=== PATIENT | male | born 1995 | race African-American/Black ===

== ENCOUNTER → 2017-01-02 | Emergency (ER) | payer OTHER ==
[~2017-01-02] MED LIST: DIPH25CA58 PO; FAMO-63 PO; PRED50TA PO
[2017-01-02 21:50] VITALS: BP 152/73
[2017-01-02] MEDS: diphenhydrAMINE 50 MG/ML VIAL IM ONE (23:00)
[2017-01-02] MEDS: predniSONE 20 MG TABLET PO ONE (23:00)
[2017-01-02] MEDS: FAMOTIDINE 20 MG TABLET PO ONE (23:00)
--- NOTE | 2017-01-02 23:25 | PHYS DOC ---
Past History Past Medical History: No Pertinent History Past Surgical History: No Surgical History Alcohol Use: Occasionally Drug Use: None Adult General Chief Complaint Chief Complaint: ALLERGIC REACTION HPI HPI Patient is a gentleman who presents to the ER today secondary to a swelling sensation to his upper and lower lip. Patient reports he started developing hives to both elbows as well as his inguinal region after taking a shower. Patient reports she started taking a allergy medication at home. Patient put some cold balm on his groin region for itching. Patient reports he does feel slightly better but now his lower lip swelling as well. Patient has any difficulty swallowing or 5 sensation is uvular region. Patient has any wheezing or shortness of breath. Patient denies any difficulty breathing. Patient has any fevers shakes chills nausea vomiting diarrhea. I went through a slit different allergens in patient denies any. Patient reports she was around a dog however that was approximately 4 days ago. Patient denies any new perfumes, colognes, detergents, shampoos, soaps, clothes, friends. Review of systems: Constitutional: Denies fever or chills Eyes: Denies change in visual acuity, redness, or eye pain HENT: Denies nasal congestion or sore throat All other systems were reviewed and found to be within normal limits, except as documented in this note. Physical exam Constitutional: Well developed, well nourished, no acute distress, non-toxic appearance. HENT: Normocephalic, atraumatic, bilateral external ears normal, oropharynx moist, no oral exudates, nose normal. Eyes: PERRLA, EOMI, conjunctiva normal, no discharge. Neck: Normal range of motion, no tenderness, supple, no stridor. Cardiovascular:Heart rate regular rhythm, Lungs & Thorax: Bilateral breath sounds clear to auscultation Abdomen: Bowel sounds normal, soft, no tenderness, no masses, no pulsatile masses. Skin: Warm, dry, no erythema, no rash. Back: No tenderness, no CVA tenderness. Extremities: No tenderness, no cyanosis, no clubbing, ROM intact, no edema. Neurologic: Alert and oriented X 3, normal motor function, normal sensory function, no focal deficits noted. Psychologic: Affect normal, judgement normal, mood normal. Patient's ER physical exam is significant for mild swelling to his upper and lower lips. There is no erythema. His uvula is normal. No stridor. There is no edema. There is no stridor. Patient does have an erythematous hive-like rash to his bilateral elbows. Patient does have erythema to his bilateral inguinal region. Patient does not present with any signs or symptoms of be concerning for impending anaphylaxis or respiratory failure. Assessment and plan: 1. 21-year-old gentleman who presents here today secondary to allergic reaction. Patient will be given Benadryl Pepcid and prednisone here in the ED. Patient is refusing about this time because he does not want be sleeping for discharge. Patient was instructed regarding my concern with the swelling in his lip. Patient's clinically hemodynamically stable without any evidence of airway compromise. Patient be discharged home with instructions to follow-up in 12-24 hours with primary care physician. Patient understands return the ER if there is any new or change in symptoms. Review of Systems Review of Systems Current Medications Current Medications Current Medications Medications (Trade) Dose Ordered Sig/Aravind Start Time Stop Time Status Last Admin Dose Admin Diphenhydramine HCl (Benadryl) 50 mg 1X ONCE 01/02/17 23:00 01/02/17 23:01 DC 01/02/17 23:00 50 MG Famotidine (Pepcid) 20 mg 1X ONCE 01/02/17 23:00 01/02/17 23:01 DC 01/02/17 23:00 20 MG Prednisone (Prednisone) 40 mg 1X ONCE 01/02/17 23:00 01/02/17 23:01 DC 01/02/17 23:00 40 MG Allergies Allergies Allergies Coded Allergies Type Severity Reaction Last Updated Verified No Known Drug Allergies 01/02/17 No Current Patient Data Vital Signs Vital Signs Date Time Temp Pulse Resp B/P (MAP) Pulse Ox O2 Delivery O2 Flow Rate FiO2 01/02/17 21:50 97.8 90 18 96 Room Air EKG EKG [] Radiology/Procedures Radiology/Procedures [] Course & Med Decision Making Course & Med Decision Making Pertinent Labs and Imaging studies reviewed. (See chart for details) [] Dragon Disclaimer Dragon Disclaimer This electronic medical record was generated, in whole or in part, using a voice recognition dictation system. Departure Departure: Impression: Primary Impression: Allergic reaction Additional Impression: Hives Disposition: HOME, SELF-CARE Condition: IMPROVED Referrals: PCP,UNKNOWN (PCP) Patient Instructions: Allergy Skin Testing, Hives Scripts Prednisone (PREDNISONE) 50 Mg Tablet 1 TAB PO DAILY, #5 TAB Prov: DIONNE MARY MD 01/02/17 Famotidine (PEPCID) 20 Mg Tablet 1 TAB PO BID, #10 TAB 0 Refills Prov: DIONNE MARY MD 01/02/17 Diphenhydramine Hcl (BENADRYL) 25 Mg Capsule 2 CAP PO QHS, #20 CAP 2 Refills Prov: DIONNE MARY MD 01/02/17 Problem Qualifiers DIONNE MARY MD Jan 02, 2017 23:25
== END | disposition home or self-care (01) ==
LOC: ER 21:28
DX: T78.40XA Allergy, unspecified, initial encounter (principal); L50.0 Allergic urticaria; X58.XXXA Exposure to other specified factors, initial encounter
CPT/HCPCS: 96372; 99283; J1200; J7512

== ENCOUNTER 2018-05-09 12:06 | Emergency (ER) | payer OTHER ==
[~2018-05-09] VITALS: Ht 175.3 cm; Wt 84.5 kg
[2018-05-09 12:06] VITALS: BP 129/71
--- NOTE | 2018-05-09 12:44 | PHYS DOC ---
Past History Past Medical History: No Pertinent History Past Surgical History: No Surgical History Alcohol Use: Occasionally Drug Use: None Adult General Chief Complaint Chief Complaint: EYE PROBLEMS [facility] HPI Patient is a 22 year old male who presents with complaining of injury to left eye. Patient states he had an accidental injury to left eye while he was playing basketball and was hit on left eye with somebody's elbow. Patient states he had left black eye without change of his vision, eye discharge, nausea and vomiting, headache, loss of consciousness, fever and chills. 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 Review of Systems Review of Systems Constitutional: Denies fever or chills [] Eyes: Denies change in visual acuity, reports redness, mild eye pain [] HENT: Denies nasal congestion or sore throat [] Respiratory: Denies cough or shortness of breath [] Cardiovascular: No additional information not addressed in HPI [] GI: Denies abdominal pain, nausea, vomiting, bloody stools or diarrhea [] : Denies dysuria or hematuria [] Musculoskeletal: Denies back pain or joint pain [] Integument: Denies rash or skin lesions [] Neurologic: Denies headache, focal weakness or sensory changes [] Endocrine: Denies polyuria or polydipsia [] All other systems were reviewed and found to be within normal limits, except as documented in this note. Allergies Allergies Allergies Coded Allergies Type Severity Reaction Last Updated Verified No Known Drug Allergies 01/02/17 No Physical Exam Physical Exam Constitutional: Well developed, well nourished, no acute distress, non-toxic appearance. [] HENT: Normocephalic, atraumatic Eyes: PERRLA, EOMI, left subconjunctival hemorrhage upper and lower eyelid contusion, no discharge. [] Neck: Normal range of motion, no tenderness, supple, no stridor. [] Cardiovascular:Heart rate regular rhythm, no murmur [] Lungs & Thorax: Bilateral breath sounds clear to auscultation [] Neurologic: Alert and oriented X 3, normal motor function, normal sensory function, no focal deficits noted. [] Psychologic: Affect normal, judgement normal, mood normal. [] EKG EKG [] Radiology/Procedures Radiology/Procedures [address] [address] IMAGING REPORT Signed PATIENT: DANIELE EDWARDS ACCOUNT: [id number] : 1995 LOCATION: ER AGE: 22 SEX: M EXAM STATUS: REG ER ORD. PHYSICIAN: VERNELL HOYT MD REASON: left eye injury PROCEDURE: CT ORBITS WO CONTRAST EXAM: Orbital CT without contrast. HISTORY: Blunt trauma. TECHNIQUE: Computed tomographic images of the orbits were obtained without contrast. *One or more of the following individualized dose reduction techniques were utilized for this examination: 1. Automated exposure control. 2. Adjustment of the mA and/or kV according to patient size. 3. Use of iterative reconstruction technique. COMPARISON: None. FINDINGS: No fracture is seen. The globes, lenses, extraocular muscles and optic nerves are unremarkable. There is a small calcification within the superior medial left orbit, likely associated with the trochlea. This can be incidental and is most often a senescent finding. This can also be associated with autoimmune disease. The paranasal sinuses are clear. The ostiomeatal units are patent. There is no significant nasal septal deviation. The temporomandibular joints are intact. There is suggestion of a left infraorbital soft tissue contusion. IMPRESSION: No acute osseous finding. Electronically signed by: Mallory Hogue MD (05/09/2018 1:02 PM) [id number] DICTATED AND SIGNED BY: MALLORY HOGUE MD DATE: 05/09/18 [id number] CC: SOFY OLIVEROS PA-C; VERNELL HOYT MD ~ Course & Med Decision Making Course & Med Decision Making Pertinent Imaging studies reviewed. (See chart for details) Evaluation of patient in ER showed 23-year-old male patient with injury to left eye 5 days ago and ecchymosis of IV fluids and subconjunctival hemorrhage. Patient had vision of 20/[address] eyes [address] of globe was unremarkable. Dragon Disclaimer Dragon Disclaimer This electronic medical record was generated, in whole or in part, using a voice recognition dictation system. Departure Departure: Impression: Primary Impression: Contusion of left eyelid and periocular area, initial encounter Disposition: HOME, SELF-CARE (at 1310) Condition: STABLE Referrals: SOFY OLIVEROS PA-C (PCP) Patient Instructions: Eye Contusion Additional Instructions: Follow-up with your primary care physician in 3-5 days Return to ER if not getting better Continue [id number] pain medication as needed VERNELL HOYT MD May 09, 2018 12:44
--- NOTE | 2018-05-09 13:05 | RAD ---
EXAM: Orbital CT without contrast. HISTORY: Blunt trauma. TECHNIQUE: Computed tomographic images of the orbits were obtained without contrast. *One or more of the following individualized dose reduction techniques were utilized for this examination: 1. Automated exposure control. 2. Adjustment of the mA and/or kV according to patient size. 3. Use of iterative reconstruction technique. COMPARISON: None. FINDINGS: No fracture is seen. The globes, lenses, extraocular muscles and optic nerves are unremarkable. There is a small calcification within the superior medial left orbit, likely associated with the trochlea. This can be incidental and is most often a senescent finding. This can also be associated with autoimmune disease. The paranasal sinuses are clear. The ostiomeatal units are patent. There is no significant nasal septal deviation. The temporomandibular joints are intact. There is suggestion of a left infraorbital soft tissue contusion. IMPRESSION: No acute osseous finding. Electronically signed by: Mallory Toribio MD (05/09/2018 1:02 PM) [email or web address]
== END 2018-05-09 13:15 | disposition home or self-care (01) ==
LOC: ER 12:06
DX: S00.12XA Contusion of left eyelid and periocular area, initial encounter (principal); H11.32 Conjunctival hemorrhage, left eye; W50.0XXA Accidental hit or strike by another person, initial encounter; Y93.67 Activity, basketball; Y92.89 Other specified places as the place of occurrence of the external cause; Y99.8 Other external cause status
CPT/HCPCS: 70480; 99284-25